=== PATIENT | female | born 1970 | race Caucasian/White ===

== ENCOUNTER → 2016-12-10 | Outpatient (CLI) | payer BC ==
--- NOTE | 2016-12-13 09:41 | MM ---
Reason for exam: screening (asymptomatic). Last mammogram was performed 1 year and 2 months ago. History: Family history of breast cancer. Physical Findings: A clinical breast exam by your physician is recommended on an annual basis and results should be correlated with mammographic findings. MG 3D Screening Mammo W/Cad Bilateral CC and MLO view(s) were taken. Prior study comparison: October 08, 2015, bilateral MG 3d screening mammo w/cad. May 20, 2014, bilateral MG screening mammo w CAD. November 20, 2012, bilateral digital screening mammo w/CAD. There are scattered fibroglandular densities. There is no discrete abnormality. ASSESSMENT: Negative, BI-RAD 1 RECOMMENDATION: Routine screening mammogram of both breasts in 1 year.
== END | disposition home or self-care (01) ==
LOC: RADMAMWWP 11:07
PROVIDERS: ATTEND Obstetrics & Gynecology
DX: Z12.31 Encounter for screening mammogram for malignant neoplasm of breast (principal)
CPT/HCPCS: 77063; G0202

== ENCOUNTER → 2018-05-15 | Outpatient (CLI) | payer BC ==
--- NOTE | 2018-05-17 10:45 | MM ---
Reason for exam: screening (asymptomatic). Last mammogram was performed 1 year and 5 months ago. History: Family history of breast cancer. Physical Findings: A clinical breast exam by your physician is recommended on an annual basis and results should be correlated with mammographic findings. MG 3D Screening Mammo W/Cad Bilateral CC and MLO view(s) were taken. Prior study comparison: December 10, 2016, bilateral MG 3d screening mammo w/cad. October 08, 2015, bilateral MG 3d screening mammo w/cad. There are scattered fibroglandular densities. No significant changes when compared with prior studies. ASSESSMENT: Benign, BI-RAD 2 RECOMMENDATION: Routine screening mammogram of both breasts in 1 year.
== END ==
LOC: RADMAMWWP 11:38
PROVIDERS: ATTEND Obstetrics & Gynecology
DX: Z12.31 Encounter for screening mammogram for malignant neoplasm of breast (principal)
CPT/HCPCS: 77063; 77067

== ENCOUNTER 2019-01-16 23:14 | Emergency (ER) | payer BC ==
[2019-01-16 23:22] VITALS: RESP 18
[2019-01-16] MEDS ORDERED: ASPIRIN 81 MG PO STA (23:37)
[2019-01-16] MEDS ORDERED: SODIUM CHLORIDE 0.9% 500 ML 500 ML IV STA (23:37)
[2019-01-17 00:32] LABS: ALT 22 U/L (9-52); AST 17 U/L (14-36); African American GFR (CKD) >90 (>60 ml/min/1.73 sqM); Albumin 4.4 g/dL (3.5-5.0); Alkaline Phosphatase 102 U/L (38-126); Anion Gap 10 mmol/L; Blood Urea Nitrogen 7 mg/dL (7-17); Calcium 9.5 mg/dL (8.4-10.2); Carbon Dioxide 24 mmol/L (22-30); Chloride 106 mmol/L (98-107); Glucose 108 mg/dL (74-99); Magnesium 1.8 mg/dL (1.6-2.3); Sodium 140 mmol/L (137-145); Total Bilirubin 0.4 mg/dL (0.2-1.3)
--- NOTE | 2019-01-17 00:33 | XR ---
EXAM: XR Chest, 2 Views CLINICAL HISTORY: ITS.REASON XR Reason: Chest Pain TECHNIQUE: Frontal and lateral views of the chest. COMPARISON: No relevant prior studies available. FINDINGS: Lungs: Unremarkable. No consolidation. Pleural space: Unremarkable. No pneumothorax. Heart: Unremarkable. No cardiomegaly. Mediastinum: Unremarkable. Bones/joints: Unremarkable. IMPRESSION: Normal chest x-rays.
[2019-01-17 00:39] LABS: Anisocytosis Slight; Basophils % (A) 0 %; Eosinophils # (A) 0.1 k/uL (0-0.7); Eosinophils % (A) 1 %; HCT 34.6 % (34.0-46.0); HGB 10.6 gm/dL (11.4-16.0); Hypochromasia Marked; INR 0.9 (<1.2); Lymphocytes # (A) 1.6 k/uL (1.0-4.8); Lymphocytes % (A) 12 %; MCH 24.3 pg (25.0-35.0); MCHC 30.6 g/dL (31.0-37.0); MCV 79.6 fL (80.0-100.0); Mean Platelet Volume 7.5; Microcytosis Slight; Monocytes # (A) 0.4 k/uL (0-1.0); Monocytes % (A) 4 %; Neutrophils # (A) 10.3 k/uL (1.3-7.7); Neutrophils % (A) 81 %; Partial Thromboplastin Time 25.3 sec (22.0-30.0); Platelet Count 464 k/uL (150-450); Prothrombin Time 10.2 sec (9.0-12.0); RBC 4.35 m/uL (3.80-5.40); WBC 12.7 k/uL (3.8-10.6)
--- NOTE | 2019-01-17 04:02 | ED ---
General Adult HPI - General Chief complaint: Chest Pain Stated complaint: Chest Pressure/ Arm numbness Time Seen by Provider: 01/16/19 23:37 Source: patient, RN notes reviewed, old records reviewed Mode of arrival: wheelchair - History of Present Illness Initial comments: 48 year old female patient presents to ED with a mild left parasternal discomfort. Patient reports that she did not have pain, rather has just a very slight pressure in her left parasternal region. Patient reports that she also had some mild paresthesias in her left arm. An neck. Patient has poor that she has MS and that she does experience these paresthesias on a fairly regular basis. Patient reports that the pressure is very mild, comes and goes. Denies any association with exertion. Denies any pleuritic pain. Denies any shortness of breath. Denies any associated symptoms including diaphoresis, pain radiation, nausea vomiting. Patient denies any personal history of cardiac disease. Patient is a diabetic. Denies all other complaints. Systemic: Pt denies fatigue, fever/chills, rash. Pt denies weakness, night sweats, weight loss. Neuro: Pt denies headache, visual disturbances, syncope or pre-syncope. HEENT: Pt denies ocular discharge or irritation, otalgia, rhinorrhea, pharyngitis or notable lymphadenopathy. Cardiopulmonary: Pt denies chest pain, SOB, heart palpitations, dyspnea on exertion. Abdominal/GI: Pt denies abdominal pain, n/v/d. : Pt denies dysuria, burning w/ urination, frequency/urgency. Denies new onset urinary or bowel incontinence. MSK: Pt denies myalgia, loss of strength or function in extremities. Neuro: Pt denies new onset weakness, paresthesias. - Related Data Allergies Allergy/AdvReac Type Severity Reaction Status Date / Time latex Allergy Wheezing Verified 01/16/19 23:22 Sulfa (Sulfonamide Allergy Rash/Hives Verified 01/16/19 23:22 Antibiotics) Review of Systems ROS Statement: Those systems with pertinent positive or pertinent negative responses have been documented in the HPI. ROS Other: All systems not noted in ROS Statement are negative. Past Medical History Past Medical History: Asthma, Diabetes Mellitus, Fibromyalgia, Thyroid Disorder Additional Past Medical History / Comment(s): PCOS. probable MS. hx of head injury History of Any Multi-Drug Resistant Organisms: None Reported Past Surgical History: Section Additional Past Surgical History / Comment(s): sinus surgery Past Psychological History: No Psychological Hx Reported Smoking Status: Never smoker Past Alcohol Use History: None Reported Past Drug Use History: None Reported General Exam - General Exam Comments Initial Comments: Constitutional: NAD, AOX3, Pt has pleasant affect. HEENT: NC/AT, trachea midline, neck supple, no lymphadenopathy. Posterior pharynx non erythematous, without exudates. External ears appear normal, without discharge. Mucous membranes moist. Eyes PERRLA, EOM intact. There is no scleral icterus. No pallor noted. Cardiopulmonary: RRR, no murmurs, rubs or gallops, no JVD noted. Lungs CTAB in anterior and posterior ochoa. No peripheral edema. Abdominal exam: Abdomen soft and non-distended. Abdomen non-tender to palpation in all 4 quadrants. Bowel sounds active in LLQ. No hepatosplenomegaly. No ecchymosis Neuro: CN II-XII intact. No nuchal rigidity. No raccon eyes, no alvarez sign, no hemotympanum. No cervical spinal tenderness. MSK: No posterior calf tenderness bilaterally, homans sign negative bilaterally. Posterior tibialis and radial pulse +2 bilaterally. Sensation intact in upper and lower extremities. Full active ROM in upper and lower extremities, 5/5 str egnth. Course Vital Signs 01/16/19 01/17/19 23:18 01:54 Temperature 98.4 F 98.4 F Pulse Rate 78 77 Respiratory 18 18 Rate Blood Pressure 146/92 116/73 O2 Sat by Pulse 100 96 Oximetry Medical Decision Making - Medical Decision Making 48 year old female patient presents to ED with a mild left parasternal discomfort. Patient reports that she did not have pain, rather has just a very slight pressure in her left parasternal region. Patient reports that she also had some mild paresthesias in her left arm. An neck. Patient has poor that she has MS and that she does experience these paresthesias on a fairly regular basis. Patient reports that the pressure is very mild, comes and goes. Denies any association with exertion. Denies any pleuritic pain. Denies any shortness of breath. Denies any associated symptoms including diaphoresis, pain radiation, nausea vomiting. Patient denies any personal history of cardiac disease. Patient is a diabetic. Denies all other complaints. Patient vital signs stable, afebrile. Physical exam did not display acute pathology. Laboratory investigations are non-impressive. Troponin negative 2. EKG not concerning for acute ischemia. Pt continues to be pain free. Patient was discharged, will follow-up with black pickler. Patient returned irritation worsens. Case discussed with Dr. Mccormack. - Lab Data Result diagrams: 01/17/19 00:01 01/17/19 00:01 Lab Results 01/17/19 01/17/19 01/17/19 Range/Units 00:01 00:01 00:01 WBC 12.7 H (3.8-10.6) k/uL RBC 4.35 (3.80-5.40) m/uL Hgb 10.6 L (11.4-16.0) gm/dL Hct 34.6 (34.0-46.0) % MCV 79.6 L (80.0-100.0) fL MCH 24.3 L (25.0-35.0) pg MCHC 30.6 L (31.0-37.0) g/dL RDW 17.0 H (11.5-15.5) % Plt Count 464 H (150-450) k/uL Neutrophils % 81 % Lymphocytes % 12 % Monocytes % 4 % Eosinophils % 1 % Basophils % 0 % Neutrophils # 10.3 H (1.3-7.7) k/uL Lymphocytes # 1.6 (1.0-4.8) k/uL Monocytes # 0.4 (0-1.0) k/uL Eosinophils # 0.1 (0-0.7) k/uL Basophils # 0.0 (0-0.2) k/uL Hypochromasia Marked Anisocytosis Slight Microcytosis Slight PT (9.0-12.0) sec INR (<1.2) APTT (22.0-30.0) sec Sodium 140 (137-145) mmol/L Potassium 4.0 (3.5-5.1) mmol/L Chloride 106 (98-107) mmol/L Carbon Dioxide 24 (22-30) mmol/L Anion Gap 10 mmol/L BUN 7 (7-17) mg/dL Creatinine 0.69 (0.52-1.04) mg/dL Est GFR (CKD-EPI)AfAm >90 (>60 ml/min/1.73 sqM) Est GFR (CKD-EPI)NonAf >90 (>60 ml/min/1.73 sqM) Glucose 108 H (74-99) mg/dL Calcium 9.5 (8.4-10.2) mg/dL Magnesium 1.8 (1.6-2.3) mg/dL Total Bilirubin 0.4 (0.2-1.3) mg/dL AST 17 (14-36) U/L ALT 22 (9-52) U/L Alkaline Phosphatase 102 (38-126) U/L Troponin I (0.000-0.034) ng/mL NT-Pro-B Natriuret Pep 45 pg/mL Total Protein 7.0 (6.3-8.2) g/dL Albumin 4.4 (3.5-5.0) g/dL 01/17/19 01/17/19 01/17/19 Range/Units 00:01 00:01 02:40 WBC (3.8-10.6) k/uL RBC (3.80-5.40) m/uL Hgb (11.4-16.0) gm/dL Hct (34.0-46.0) % MCV (80.0-100.0) fL MCH (25.0-35.0) pg MCHC (31.0-37.0) g/dL RDW (11.5-15.5) % Plt Count (150-450) k/uL Neutrophils % % Lymphocytes % % Monocytes % % Eosinophils % % Basophils % % Neutrophils # (1.3-7.7) k/uL Lymphocytes # (1.0-4.8) k/uL Monocytes # (0-1.0) k/uL Eosinophils # (0-0.7) k/uL Basophils # (0-0.2) k/uL Hypochromasia Anisocytosis Microcytosis PT 10.2 (9.0-12.0) sec INR 0.9 (<1.2) APTT 25.3 (22.0-30.0) sec Sodium (137-145) mmol/L Potassium (3.5-5.1) mmol/L Chloride (98-107) mmol/L Carbon Dioxide (22-30) mmol/L Anion Gap mmol/L BUN (7-17) mg/dL Creatinine (0.52-1.04) mg/dL Est GFR (CKD-EPI)AfAm (>60 ml/min/1.73 sqM) Est GFR (CKD-EPI)NonAf (>60 ml/min/1.73 sqM) Glucose (74-99) mg/dL Calcium (8.4-10.2) mg/dL Magnesium (1.6-2.3) mg/dL Total Bilirubin (0.2-1.3) mg/dL AST (14-36) U/L ALT (9-52) U/L Alkaline Phosphatase (38-126) U/L Troponin I <0.012 <0.012 (0.000-0.034) ng/mL NT-Pro-B Natriuret Pep pg/mL Total Protein (6.3-8.2) g/dL Albumin (3.5-5.0) g/dL - EKG Data -: EKG Interpreted by Me (and Dr. Pittman) EKG Comments: Ventricular rate 77,. Full 164, QRS 86, QT/QTC 414 since 460. Sinus rhythm with premature atrial complexes. Low voltage QRS, poor lead EKG, no concern for acute ischemia. Disposition Clinical Impression: Chest pain Disposition: HOME SELF-CARE Condition: Stable Instructions (If sedation given, give patient instructions): Chest Pain (ED) Additional Instructions: Patient to adhere to previously discussed treatment plan and will take medication(s) as directed. Patient to follow up with PCP in 1-2 days. Patient to return to ED if symptoms do not improve. Follow-up with previously established black pickler tomorrow. Follow-up with primary care provider tomorrow. Return immediately to ER if condition worsens. Is patient prescribed a controlled substance at d/c from ED?: No Referrals: Jose A Laws MD [Primary Care Provider] - 1-2 days Carlos Eubanks MD [STAFF PHYSICIAN] - 1-2 days
--- NOTE | 2019-01-17 04:11 | ED ---
Medical Decision Making - Medical Decision Making On final evaluation patient patient did endorse that she was expressing some left first sternal discomfort. Patient was advised to be admitted to hospital for continued evaluation cardiac consultation. Patient declined admission states that she'll follow up on outpatient basis and return strict return precautions. Risks were discussed with patient and she verbalized understanding. - Lab Data Result diagrams: 01/17/19 00:01 01/17/19 00:01 Lab Results 01/17/19 01/17/19 01/17/19 Range/Units 00:01 00:01 00:01 WBC 12.7 H (3.8-10.6) k/uL RBC 4.35 (3.80-5.40) m/uL Hgb 10.6 L (11.4-16.0) gm/dL Hct 34.6 (34.0-46.0) % MCV 79.6 L (80.0-100.0) fL MCH 24.3 L (25.0-35.0) pg MCHC 30.6 L (31.0-37.0) g/dL RDW 17.0 H (11.5-15.5) % Plt Count 464 H (150-450) k/uL Neutrophils % 81 % Lymphocytes % 12 % Monocytes % 4 % Eosinophils % 1 % Basophils % 0 % Neutrophils # 10.3 H (1.3-7.7) k/uL Lymphocytes # 1.6 (1.0-4.8) k/uL Monocytes # 0.4 (0-1.0) k/uL Eosinophils # 0.1 (0-0.7) k/uL Basophils # 0.0 (0-0.2) k/uL Hypochromasia Marked Anisocytosis Slight Microcytosis Slight PT (9.0-12.0) sec INR (<1.2) APTT (22.0-30.0) sec Sodium 140 (137-145) mmol/L Potassium 4.0 (3.5-5.1) mmol/L Chloride 106 (98-107) mmol/L Carbon Dioxide 24 (22-30) mmol/L Anion Gap 10 mmol/L BUN 7 (7-17) mg/dL Creatinine 0.69 (0.52-1.04) mg/dL Est GFR (CKD-EPI)AfAm >90 (>60 ml/min/1.73 sqM) Est GFR (CKD-EPI)NonAf >90 (>60 ml/min/1.73 sqM) Glucose 108 H (74-99) mg/dL Calcium 9.5 (8.4-10.2) mg/dL Magnesium 1.8 (1.6-2.3) mg/dL Total Bilirubin 0.4 (0.2-1.3) mg/dL AST 17 (14-36) U/L ALT 22 (9-52) U/L Alkaline Phosphatase 102 (38-126) U/L Troponin I (0.000-0.034) ng/mL NT-Pro-B Natriuret Pep 45 pg/mL Total Protein 7.0 (6.3-8.2) g/dL Albumin 4.4 (3.5-5.0) g/dL 01/17/19 01/17/19 01/17/19 Range/Units 00:01 00:01 02:40 WBC (3.8-10.6) k/uL RBC (3.80-5.40) m/uL Hgb (11.4-16.0) gm/dL Hct (34.0-46.0) % MCV (80.0-100.0) fL MCH (25.0-35.0) pg MCHC (31.0-37.0) g/dL RDW (11.5-15.5) % Plt Count (150-450) k/uL Neutrophils % % Lymphocytes % % Monocytes % % Eosinophils % % Basophils % % Neutrophils # (1.3-7.7) k/uL Lymphocytes # (1.0-4.8) k/uL Monocytes # (0-1.0) k/uL Eosinophils # (0-0.7) k/uL Basophils # (0-0.2) k/uL Hypochromasia Anisocytosis Microcytosis PT 10.2 (9.0-12.0) sec INR 0.9 (<1.2) APTT 25.3 (22.0-30.0) sec Sodium (137-145) mmol/L Potassium (3.5-5.1) mmol/L Chloride (98-107) mmol/L Carbon Dioxide (22-30) mmol/L Anion Gap mmol/L BUN (7-17) mg/dL Creatinine (0.52-1.04) mg/dL Est GFR (CKD-EPI)AfAm (>60 ml/min/1.73 sqM) Est GFR (CKD-EPI)NonAf (>60 ml/min/1.73 sqM) Glucose (74-99) mg/dL Calcium (8.4-10.2) mg/dL Magnesium (1.6-2.3) mg/dL Total Bilirubin (0.2-1.3) mg/dL AST (14-36) U/L ALT (9-52) U/L Alkaline Phosphatase (38-126) U/L Troponin I <0.012 <0.012 (0.000-0.034) ng/mL NT-Pro-B Natriuret Pep pg/mL Total Protein (6.3-8.2) g/dL Albumin (3.5-5.0) g/dL Disposition Clinical Impression: Chest pain Disposition: HOME SELF-CARE Condition: Stable Instructions (If sedation given, give patient instructions): Chest Pain (ED) Additional Instructions: Patient to adhere to previously discussed treatment plan and will take medication(s) as directed. Patient to follow up with PCP in 1-2 days. Patient to return to ED if symptoms do not improve. Follow-up with previously established celebrity manager tomorrow. Follow-up with primary care provider tomorrow. Return immediately to ER if condition worsens. Is patient prescribed a controlled substance at d/c from ED?: No Referrals: Jose A Laws MD [Primary Care Provider] - 1-2 days Carlos Eubanks MD [STAFF PHYSICIAN] - 1-2 days
[2019-01-17 04:19] VITALS: BP 131/78; PULSE 68; TEMP 97.8
== END 2019-01-17 04:18 | disposition home or self-care (01) ==
LOC: EC 23:14
DX: R07.89 Other chest pain (principal); R20.2 Paresthesia of skin; Z88.2 Allergy status to sulfonamides; Z91.040 Latex allergy status
CPT/HCPCS: 36415; 71046; 80053; 83735; 83880; 84484; 85025; 85610; 85730; 93005; 96360; 96361; 99285

== ENCOUNTER → 2019-08-16 | Outpatient (CLI) | payer BC ==
--- NOTE | 2019-08-17 16:50 | MM ---
Reason for exam: screening (asymptomatic). Last mammogram was performed 1 year and 3 months ago. History: Family history of breast cancer in maternal aunt. Took hormonal contraceptives beginning at age 14. Physical Findings: A clinical breast exam by your physician is recommended on an annual basis and results should be correlated with mammographic findings. MG 3D Screening Mammo W/Cad Bilateral CC and MLO view(s) were taken. Prior study comparison: May 15, 2018, bilateral MG 3d screening mammo w/cad. December 10, 2016, bilateral MG 3d screening mammo w/cad. The breast tissue is heterogeneously dense. This may lower the sensitivity of mammography. No significant changes when compared with prior studies. ASSESSMENT: Benign, BI-RAD 2 RECOMMENDATION: Routine screening mammogram of both breasts in 1 year.
== END | disposition home or self-care (01) ==
LOC: RADMAMWWP 16:39
PROVIDERS: ATTEND Obstetrics & Gynecology
DX: Z12.31 Encounter for screening mammogram for malignant neoplasm of breast (principal); Z80.3 Family history of malignant neoplasm of breast
CPT/HCPCS: 77063; 77067

== ENCOUNTER → 2020-11-27 | Outpatient (CLI) | payer BC ==
--- NOTE | 2020-11-27 12:03 | MR ---
EXAMINATION TYPE: MR brain wo/w con DATE OF EXAM: 11/27/2020 COMPARISON: Prior exam 12/03/2017 HISTORY: MS, right side hearing loss, chronic left side weakness and new right leg weakness TECHNIQUE: Multiplanar, multisequence images of the brain and brainstem is performed without and with IV contras t, utilizing 10 mL intravenous Gadavist . FINDINGS: Diffusion weighted images demonstrate no evidence of a recent infarct or other diffusion ab normality. There is no extra-axial fluid collection, interval increase in white matter signal abnorm ality, some scattered foci of hyperintensity within the deep white matter on inversion recovery T2-we ighted sequences are noted, some of the foci appears somewhat larger are more conspicuous compared to prior exam possibly due to differences in technique. A slightly 40-50 lesions are suspected, larges t in the right frontal white matter measures slightly 8 mm and shows a similar size. The ventricular system and cisternal spaces are normal in size and appearance. The brain volume is age appropriate. The cerebellopontine angles show no mass. There is no abnormal enhancement along the internal grinding machine operator y canals to suggest acoustic,. Midline structures demonstrate normal morphology. The craniocervical junction appears within normal limits. Post contrast images demonstrate no abnormal enhancement. The dural venous sinuses appear pa tent. The visualized sinuses are clear and the globes are intact. IMPRESSION: There are some more conspicuous lesions, increased number of lesions as compared to prior exam, there are differences in technique the exams. Bodies consistent with patient's history of mul tiple sclerosis.
== END | disposition home or self-care (01) ==
LOC: RADMRIMAIN 09:17
PROVIDERS: ATTEND Psychiatry & Neurology Neurology
DX: G35 Multiple sclerosis (principal)
CPT/HCPCS: 70553; A9585

== ENCOUNTER → 2021-01-13 | Outpatient (CLI) | payer BC ==
--- NOTE | 2021-01-14 09:12 | MR ---
EXAMINATION TYPE: MR cspine/tspine wo/w con DATE OF EXAM: 01/13/2021 COMPARISON: NONE HISTORY: MS, new onset right leg weakness for 2-3 months, chronic left leg weakness, facial numbness, left arm sensory issues, headaches. TECHNIQUE: Multiplanar, multisequence imaging of cervical and thoracic spine are performed without an d with IV contrast, patient injected with 10cc of gadolinium for study. Demyelinating disease protoco l. FINDINGS: C-SPINE: FINDINGS: Sagittal images of the cervical spine show the craniocervical junction to appear within nor mal limits. The cervical and upper thoracic spinal cord is normal in course, caliber, and signal. V ertebral alignment is anatomic. The vertebral body and intravertebral disk heights are normal. The bone marrow signal intensity is within normal limits. No suspicious postcontrast enhancement. Axial images show C2-C3, C3-C4, and C4-C5 levels all to appear within normal limits. Axial images at C5-C6 levels with broad-based posterior disc protrusion effacing anterior thecal sac and causing mild to moderate left greater than right bilateral neural foraminal narrowing. Axial images at C6-C7 and C7-T1 levels appear within normal limits IMPRESSION: No MRI evidence for demyelinating disease involvement in the cervical spinal cord. Focal degenerative change C5-C6 level as detailed above. T-SPINE: Spinal cord shows normal course, caliber, and signal as it courses the thoracic spine. Vertebral bod y heights and alignment are satisfactory. Disc space heights are maintained. Posterior disc herniatio ns noted at T7-T8 and T8-T9 level sagittal image 8 effacing anterior thecal sac. Bone marrow signal i ntensity is preserved. No suspicious postcontrast enhancement. Review of the axial images shows confirms additional tiny right paracentral disc protrusion at T6-T7 level effacing anterior thecal sac image 3 series 1401. Larger disc herniation T7-T8 and largest dis c herniation T8-T9 level are redemonstrated. Visualized upper abdomen shows 1.4 cm nonenhancing lesio n in the medial posterior right hepatic lobe image 8 series 1301 thought to reflect benign thin-mia d cyst. No suspicious enhancement. IMPRESSION: No MRI evidence for demyelinating disease involving the thoracic spinal cord. Some mid t o inferior posterior disc herniations are evident.
== END | disposition home or self-care (01) ==
LOC: RADMRIMAIN 11:35
PROVIDERS: ATTEND Psychiatry & Neurology Neurology
DX: M50.222 Other cervical disc displacement at C5-C6 level (principal); M99.71 Connective tissue and disc stenosis of intervertebral foramina of cervical region; M51.24 Other intervertebral disc displacement, thoracic region
CPT/HCPCS: 72156; 72157; A9585

== ENCOUNTER → 2021-02-05 | Outpatient (CLI) | payer BC ==
--- NOTE | 2021-02-09 08:30 | MM ---
Reason for exam: screening (asymptomatic). Last mammogram was performed 1 year and 6 months ago. History: Family history of breast cancer in maternal aunt. Took hormonal contraceptives beginning at age 14. Physical Findings: A clinical breast exam by your physician is recommended on an annual basis and results should be correlated with mammographic findings. MG 3D Screening Mammo W/Cad Bilateral CC and MLO view(s) were taken. Prior study comparison: August 16, 2019, bilateral MG 3d screening mammo w/cad. May 15, 2018, bilateral MG 3d screening mammo w/cad. There are scattered fibroglandular densities. There is no discrete abnormality. No significant changes when compared with prior studies. ASSESSMENT: Negative, BI-RAD 1 RECOMMENDATION: Routine screening mammogram of both breasts in 1 year.
== END | disposition home or self-care (01) ==
LOC: RADMAMWWP 07:57
PROVIDERS: ATTEND Obstetrics & Gynecology
DX: Z12.31 Encounter for screening mammogram for malignant neoplasm of breast (principal); Z80.3 Family history of malignant neoplasm of breast; Z79.3 Long term (current) use of hormonal contraceptives
CPT/HCPCS: 77063; 77067

== ENCOUNTER → 2021-05-19 | Outpatient (CLI) | payer BC ==
--- NOTE | 2021-05-19 09:40 | BD ---
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 Secondary Osteoporosis: YES 1. Type 1 Diabetes: YES RISK FACTORS HISTORY OF: Family History of Osteoporosis: YES, GRANDMOTHER Active: NO, IN BIKE LIKE [employer] Postmenopausal woman: NA, LMP 2 WKS AGO, DENIES Frequent falls: UNSTEADY, MS Poor Health: PT HAS MS Hyperparathyroidism: NO Adrenal Insufficiency: NO MEDICATIONS: Prednisone or other steroids: YES, OVER 10 GMS THIS YR ALONE, PT HAS MS Thyroid Medications: YES, SYNTHROID FOR ABOUT 20+ YRS Additional Medications: BP MEDS, WELLBUTRIN, XANAX, METFORMIN, HUMALOG WITH SOLUMEDROL, REFLUX MEDS, VIT D, BACLOFEN Additional History: PT HAS MS, ANXIETY, PAIN, DIABETIC, REFLUX, EXAM MEASUREMENTS: Bone mineral densitometry was performed using the [employer] System. Bone mineral density as measured about the Lumbar spine is: ----- L1-L4(G/cm2): 1.359 T Score Values are as follows: ----- L1: 0.0 ----- L2: 1.3 ----- L3: 1.7 ----- L4: 2.4 ----- L1-L4: 1.5 Bone mineral density THIS IS HER FIRST DEXA......BASELINE STUDY Bone mineral density about the R hip (g/cm2): 1.077 Bone mineral density about the L hip (g/cm2): 1.070 T Score values are as follows: -----R Neck: 0.0 -----L Neck: -0.4 -----R Total: 0.5 -----L Total: 0.5 Bone mineral density FIRST DEXA ......BASELINE STUDY FRAX%s: THERE IS A 5.1% CHANCE FOR A MAJOR OSTEOPOROTIC FX AND A 0.1% FOR HIP.....PROBABILITY FOR FX IN 10 YRS TIME IMPRESSION: Normal (Values between +1 and -1 indicate normal bone mass). Consider repeating this study in 5 year s or sooner if there is some new clinical indication. NOTE: T-SCORE=SD OF THE YOUNG ADULT MEAN.
== END | disposition home or self-care (01) ==
LOC: RADBDWWP 08:34
PROVIDERS: ATTEND Family Medicine
DX: K21.9 Gastro-esophageal reflux disease without esophagitis (principal); Z79.52 Long term (current) use of systemic steroids; F41.9 Anxiety disorder, unspecified; E10.9 Type 1 diabetes mellitus without complications; Z79.899 Other long term (current) drug therapy
CPT/HCPCS: 77080

== ENCOUNTER → 2021-11-10 | Outpatient (CLI) | payer BC ==
--- NOTE | 2021-11-10 15:44 | MR ---
EXAMINATION TYPE: MR brain wo/w con DATE OF EXAM: 11/10/2021 COMPARISON: Brain MRI 11/27/2020 HISTORY: MS yearly f/u, rt side weakness, speech problems TECHNIQUE: Multiplanar, multisequence images of the brain and brainstem is performed without and with IV contras t, utilizing 9 mL intravenous Gadavist . FINDINGS: Diffusion weighted images demonstrate no evidence of a recent infarct or other diffusion ab normality. There is no extra-axial fluid collection or significant change in white matter signal abn ormality, some lesions show somewhat decreased conspicuity in the current exam is compared to prior e xam possibly due to differences in technique. The ventricular system and cisternal spaces are normal in size and appearance. The brain volume is age appropriate. Midline structures demonstrate normal morphology. The craniocervical junction appears within normal limits. Post contrast images demonstrate no abnormal enhancement. The dural venous sinuses appear pa tent. The visualized sinuses are clear and the globes are intact. IMPRESSION: Findings thought to be essentially stable. No enhancing lesions evident.
== END | disposition home or self-care (01) ==
LOC: RADMRIMAIN 07:13
PROVIDERS: ATTEND Psychiatry & Neurology Neurology
DX: G35 Multiple sclerosis (principal); R53.1 Weakness
CPT/HCPCS: 70553; A9585

== ENCOUNTER → 2022-02-24 | Outpatient (CLI) | payer BC ==
--- NOTE | 2022-02-25 07:53 | MM ---
Reason for Exam: Screening (asymptomatic). Last mammogram was performed 1 year(s) and 1 month(s) ago. Patient History: Menarche at age 13. First Full-Term at age 29. Hormonal Contraceptives, from age 14 until age 35. Maternal aunt had breast cancer. Risk Values: Daja 5 year model risk: 1.1%. NCI Lifetime model risk: 11.0%. Prior Study Comparison: 05/15/2018 Bilateral Screening Mammogram, [facility]. 08/16/2019 Bilateral Screening Mammogram, [facility]. 02/05/2021 Bilateral Screening Mammogram, [facility]. Tissue Density: There are scattered fibroglandular densities. Findings: Analyzed By CAD. There is no suspicious group of microcalcifications or new suspicious mass in either breast. Overall Assessment: Negative, BI-RAD 1 Management: Screening Mammogram of both breasts in 1 year. A clinical breast exam by your physician is recommended on an annual basis and results should be correlated with mammographic findings. Electronically signed and approved by: Ralph Enrique M.D. Radiologis
== END | disposition home or self-care (01) ==
LOC: RADMAMWWP 09:04
PROVIDERS: ATTEND Obstetrics & Gynecology
DX: Z12.31 Encounter for screening mammogram for malignant neoplasm of breast (principal); Z80.3 Family history of malignant neoplasm of breast
CPT/HCPCS: 77063; 77067

== ENCOUNTER → 2022-04-13 | Outpatient (CLI) | payer BC | END | disposition home or self-care (01) | LOC: LABWHC1 09:59 | PROVIDERS: ATTEND Psychiatry & Neurology Neurology | DX: G35 Multiple sclerosis (principal) | CPT/HCPCS: 36415; 82164; 82607; 85652; 86038; 86235 ==

== ENCOUNTER → 2023-06-13 | Outpatient (CLI) | payer BC ==
--- NOTE | 2023-06-14 20:33 | MM ---
Reason for Exam: Screening (asymptomatic). Last mammogram was performed 1 year(s) and 4 month(s) ago. Patient History: Menarche at age 13. First Full-Term at age 29. Premenopausal. Hormonal Contraceptives, from age 14 until age 35. Maternal aunt had breast cancer. Risk Values: Daja 5 year model risk: 1.2%. NCI Lifetime model risk: 10.8%. Prior Study Comparison: 08/16/2019 Bilateral Screening Mammogram, [facility]. 02/05/2021 Bilateral Screening Mammogram, [facility]. 02/24/2022 Bilateral MG 3D screening mammo w/cad, [facility]. Tissue Density: There are scattered fibroglandular densities. Findings: Analyzed By CAD. There is no suspicious group of microcalcifications or new suspicious mass in either breast. Overall Assessment: Negative, BI-RAD 1 Management: Screening Mammogram of both breasts in 1 year. . Patient should continue monthly self-breast exams. A clinical breast exam by your physician is recommended on an annual basis. This exam should not preclude additional follow-up of suspicious palpable abnormalities. Note on Daja scores and lifetime risk: 1. A Daja score greater than 3% is considered moderate risk. If this is the case, consider specialist referral to assess eligibility for a risk reducing agent. 2. If overall lifetime risk for the development of breast cancer is 20% or higher, the patient may qualify for future screening with alternating mammogram and breast MRI. Electronically signed and approved by: Karen Carter M.D. Radiologist
== END | disposition home or self-care (01) ==
LOC: RADMAMWWP 11:29
PROVIDERS: ATTEND Obstetrics & Gynecology
DX: Z12.31 Encounter for screening mammogram for malignant neoplasm of breast (principal); Z80.3 Family history of malignant neoplasm of breast
CPT/HCPCS: 77063; 77067

== ENCOUNTER → 2024-06-15 | Outpatient (CLI) | payer BC ==
--- NOTE | 2024-06-18 10:59 | MM ---
Reason for Exam: Screening (asymptomatic). Last screening mammogram was performed 12 month(s) ago. Patient History: Menarche at age 13. First Full-Term at age 29. Premenopausal. Hormonal Contraceptives, from age 14 until age 35. Maternal aunt had breast cancer. Last menstrual period: 04/21/2024 Risk Values: Daja 5 year model risk: 1.2%. NCI Lifetime model risk: 10.6%. Prior Study Comparison: 02/05/2021 Bilateral Screening Mammogram, [facility]. 02/24/2022 Bilateral MG 3D screening mammo w/cad, [facility]. 06/13/2023 Bilateral MG 3D screening mammo w/cad, [facility]. Tissue Density: There are scattered areas of fibroglandular density. Findings: Analyzed By CAD. Right breast: There is no suspicious group of microcalcifications or new suspicious mass. Left breast: There is no suspicious group of microcalcifications or new suspicious mass. Overall Assessment: Negative, BI-RAD 1 Management: Screening Mammogram of both breasts in [address] [facility] will attempt to contact patient to return for supplemental views and ultrasound if indicated. Patient should continue monthly self-breast exams. A clinical breast exam by your physician is recommended on an annual basis. This exam should not preclude additional follow-up of suspicious palpable abnormalities. Note on Daja scores and lifetime risk: 1. A Daja score greater than 3% is considered moderate risk. If this is the case, consider specialist referral to assess eligibility for a risk reducing agent. 2. If overall lifetime risk for the development of breast cancer is 20% or higher, the patient may qualify for future screening with alternating mammogram and breast MRI. [facility], , 06/18/2024 10:56 AM. Electronically signed and approved by: Olaf Rich DO
== END | disposition home or self-care (01) ==
LOC: RADMAMWWP 12:46
PROVIDERS: ATTEND Obstetrics & Gynecology
DX: Z12.31 Encounter for screening mammogram for malignant neoplasm of breast (principal); R92.323 Mammographic fibroglandular density, bilateral breasts; Z80.3 Family history of malignant neoplasm of breast
CPT/HCPCS: 77063; 77067

== ENCOUNTER 2024-08-03 14:31 | Emergency (ER) | payer BC ==
[2024-08-03 15:23] LABS: Glucose,Whole Blood 129 mg/dL (70-110)
--- NOTE | 2024-08-03 16:03 | ED ---
Lower Extremity Injury HPI - General Chief Complaint: Extremity Injury, Lower Stated Complaint: fall Time Seen by Provider: 08/03/24 14:48 Source: patient, RN notes reviewed Mode of arrival: wheelchair Limitations: no limitations - History of Present Illness MD Complaint: hip injury, knee injury Onset/Timin -: hour(s) Time: 13:00 Injury: Hip: Left, Thigh: Left, Knee: Left Type of Injury: hyperextension Place: home Severity scale (1-10): 10 Improves With: immobilization, rest Worsens With: weight bearing, movement, palpation Context: fall Associated Symptoms: unable to bear weight Treatments Prior to Arrival: other (Baclofen) - Related Data Home Medications Medication Instructions Recorded Confirmed ALPRAZolam [Xanax] 0.5 mg PO BID PRN 11/25/20 09/01/21 Albuterol Inhaler [Ventolin Hfa 2 puff INHALATION RT-TID PRN 11/25/20 09/01/21 Inhaler] Albuterol Nebulized [Ventolin 1.25 mg INHALATION DIRECTED PRN 11/25/20 09/01/21 Nebulized] Aspirin 81 mg PO DAILY 11/25/20 09/01/21 Baclofen 10 mg PO QID 11/25/20 09/01/21 Budesonide [Pulmicort] 0.5 mg INHALATION BID 11/25/20 09/01/21 Cetirizine HCl [Zyrtec] 5 mg PO BID 11/25/20 09/01/21 Famotidine [Pepcid] 20 mg PO BID 11/25/20 09/01/21 HYDROcodone/APAP 5-325MG [[place] 1 tab PO Q6HR PRN 11/25/20 09/01/21 5-325] INSULIN LISPRO (humaLOG) [humaLOG] 0 units SQ DIRECTED 11/25/20 09/01/21 Levothyroxine Sodium [Synthroid] 150 mcg PO DAILY 11/25/20 09/01/21 Losartan [Cozaar] 25 mg PO DAILY 11/25/20 09/01/21 buPROPion HCL [Wellbutrin XL] 300 mg PO DAILY 11/25/20 09/01/21 metFORMIN HCL [Glucophage Xr] 500 mg PO BID 11/25/20 09/01/21 Mometasone Furoate [Nasonex Nasal 1 - 2 spray EA NOSTRIL DAILY 05/05/21 09/01/21 [place]] Previous Rx's Medication Instructions Recorded Ibuprofen [Motrin] 800 mg PO Q8H PRN #30 tab 08/03/24 Allergies Allergy/AdvReac Type Severity Reaction Status Date / Time clarithromycin [From Biaxin] Allergy Swelling Verified 08/03/24 15:16 latex Allergy Wheezing Verified 08/03/24 15:16 Sulfa (Sulfonamide Allergy Rash/Hives Verified 08/03/24 15:16 Antibiotics) Review of Systems ROS Statement: Those systems with pertinent positive or pertinent negative responses have been documented in the HPI. ROS Other: All systems not noted in ROS Statement are negative. Past Medical History Past Medical History: Asthma, Diabetes Mellitus, Fibromyalgia, Hypertension, Thyroid Disorder Additional Past Medical History / Comment(s): PC0S. hx of head injury. MULTIPLE SCLEROSIS History of Any Multi-Drug Resistant Organisms: None Reported Past Surgical History: Section Additional Past Surgical History / Comment(s): sinus surgery Past Psychological History: No Psychological Hx Reported Smoking Status: Never smoker Past Alcohol Use History: None Reported Past Drug Use History: None Reported General Exam Limitations: no limitations Course Vital Signs 08/03/24 08/03/24 08/03/24 15:16 18:48 19:46 Pulse Rate 88 68 69 Respiratory 20 16 16 Rate Blood Pressure 116/69 106/69 95/62 O2 Sat by Pulse 98 100 100 Oximetry Medical Decision Making - Medical Decision Making Was pt. sent in by a medical professional or institution (, KARLY, DESIGN EDITOR, urgent care, hospital, or senior living...) When possible be specific @ -[No] Did you speak to anyone other than the patient for history (EMS, parent, family, police, friend...)? What history was obtained from this source @ -[No] Did you review nursing and triage notes (agree or disagree)? Why? @ -[I reviewed and agree with nursing and triage notes] Were old charts reviewed (outside hosp., previous admission, EMS record, old EKG, old radiological studies, urgent care reports/EKG's, senior living records)? Report findings @ -[No old charts were reviewed] Differential Diagnosis (chest pain, altered mental status, abdominal pain women, abdominal pain men, vaginal bleeding, weakness, fever, dyspnea, syncope, headache, dizziness, GI bleed, back pain, seizure, CVA, palpatations, mental health, musculoskeletal)? @ -[not applicable] EKG interpreted by me (3pts min.). @ -Not done X-rays interpreted by me (1pt min.). @ -[None done] CT interpreted by me (1pt min.). @ -[None done] U/S interpreted by me (1pt. min.). @ -[None done] What testing was considered but not performed or refused? (CT, X-rays, U/S, labs)? Why? @ -[None] What meds were considered but not given or refused? Why? @ -[None] Did you discuss the management of the patient with other professionals (professionals i.e. , PA, DESIGN EDITOR, lab, RT, psych nurse, social media sr strategy manager, manufacturing engineering intern, teacher, loan officer, dependency case manager)? Give summary @ -[No] Was smoking cessation discussed for >3mins.? @ -[No] Was critical care preformed (if so, how long)? @ -[No] Were there social determinants of health that impacted care today? How? (Homelessness, low income, unemployed, alcoholism, drug addiction, transportation, low edu. Level, literacy, decrease access to med. care, fdc, rehab)? @ -[No] Was there de-escalation of care discussed even if they declined (Discuss DNR or withdrawal of care, Hospice)? DNR status @ -[No] What co-morbidities impacted this encounter? (DM, HTN, Smoking, COPD, CAD, Cancer, CVA, ARF, Chemo, Hep., AIDS, mental health diagnosis, sleep apnea, morbid obesity)? @ -[None] Was patient admitted / discharged? Hospital course, mention meds given and route, prescriptions, significant lab abnormalities, going to OR and other pertinent info. @ -[hospital course] Undiagnosed new problem with uncertain prognosis? @ -[No] Drug Therapy requiring intensive monitoring for toxicity (Heparin, Nitro, Insulin, Cardizem)? @ -[No] Were any procedures done? @ -[No] Diagnosis/symptom? @ -[default] Acute, or Chronic, or Acute on Chronic? @ -Acute Uncomplicated (without systemic symptoms) or Complicated (systemic symptoms)? @ -Uncomplicated Side effects of treatment? @ -[No] Exacerbation, Progression, or Severe Exacerbation? @ -[No] Poses a threat to life or bodily function? How? (Chest pain, [place], [place], pneumonia, PE, COPD, DKA, ARF, appy, cholecystitis, CVA, Diverticulitis, Homicidal, Suicidal, threat to staff... and all critical care pts) @ -[No] - Lab Data Lab Results 08/03/24 Range/Units 15:20 POC Glucose (mg/dL) 129 H (70-110) mg/dL POC Glu Die Tester ID Briana Figueroa Disposition Clinical Impression: Strain of hip flexor Disposition: HOME SELF-CARE Condition: Good Instructions (If sedation given, give patient instructions): Hamstring Injury (ED) Prescriptions: Ibuprofen [Motrin] 800 mg PO Q8H PRN #30 tab PRN Reason: Pain Is patient prescribed a controlled substance at d/c from ED?: No Referrals: Julia Stafford MD [Primary Care Provider] - 1-2 days Time of Disposition: 17:47
[2024-08-03] MEDS: KETOROLAC 15 MG/ML 1 ML VIAL IM STA (16:18)
[2024-08-03] MEDS: HYDROmorphone 1 MG/ML 1 ML SYRINGE IM STA (16:19)
--- NOTE | 2024-08-03 17:34 | XR ---
EXAMINATION TYPE: XR knee complete LT DATE OF EXAM: 08/03/2024 4:55 PM COMPARISON: None. CLINICAL INDICATION: Female, 54 years old with history of Slip and fall, hyperextension, pain TECHNIQUE: 3 view(s) obtained. FINDINGS: No joint effusion is evident. Joint spaces are preserved. No acute fracture or dislocation. Follow up exams can be performed 7-10 days from acute trauma for continued pain. MRI can be performed as clinically indicated. IMPRESSION: 1. No acute osseous abnormalities left knee [facility], Workstation: [facility], 08/03/2024 5:32 PM
--- NOTE | 2024-08-03 17:35 | XR ---
EXAMINATION TYPE: XR Hip Complete LT DATE OF EXAM: 08/03/2024 4:55 PM COMPARISON: None. CLINICAL INDICATION: Female, 54 years old with history of Slip and fall, hyperextension, pain TECHNIQUE: 2 view(s) obtained. FINDINGS: Femoral head articulates with the acetabulum. Joint spaces preserved. No acute fracture or dislocatio n evident. Follow up exams can be performed as clinically indicated. IMPRESSION: 1. No acute fracture left hip [facility], Workstation: [facility], 08/03/2024 5:32 PM
[2024-08-03] MEDS: ONDANSETRON ODT 4 MG TAB PO STA (18:01)
[2024-08-03] MEDS: ACET/COD 300 MG/30 MG STARTER PACK 6 TAB BTL PO STA (18:02)
[2024-08-03 18:50] VITALS: RESP 16
--- NOTE | 2024-08-03 19:19 | CT ---
EXAMINATION TYPE: CT hip LT wo con DATE OF EXAM: 08/03/2024 6:43 PM COMPARISON: None. CLINICAL INDICATION: Female, 54 years old with history of Fall, unable to bear weight, Fall, c/o of l eft hip pain, unable to bear weight. TECHNIQUE: Contrast used: mL of , (none if empty) Oral contrast used: (none if empty) Axial images 3 mm thick sections. Reconstructed images in coronal and sagittal planes. FINDINGS: Sacroiliac joint vacuum phenomenon is noted. No acute fractures are evident within the osseous structures. Femoral head articulates with the aceta bulum. No acute femoral fracture within the [id number] is evident. Joint space has mild narrowing. Symphysis pubis, pubic ramus and ischial ramus as visualized are normal. Iliac wing appears normal. IMPRESSION: 1. NO ACUTE OSSEOUS ABNORMALITY LEFT HIP FOLLOW-UP CLINICALLY INDICATED [facility], Workstation: [facility], 08/03/2024 7:16 PM
[2024-08-03 19:49] VITALS: BP 95/62; PULSE 69
== END 2024-08-03 19:46 | disposition home or self-care (01) ==
LOC: EC 14:31
DX: S76.012A Strain of muscle, fascia and tendon of left hip, initial encounter (principal); Z88.1 Allergy status to other antibiotic agents; Z88.2 Allergy status to sulfonamides; Z91.040 Latex allergy status; X58.XXXA Exposure to other specified factors, initial encounter
CPT/HCPCS: 36415; 73502; 73562; 73700; 99284; 96372; L1830; J1171; J1885